=== PATIENT | male | born 1965 | race Two or more races ===

== ENCOUNTER 2018-06-20 02:52 | Emergency (ER) | payer SELFPAY ==
[~2018-06-20] VITALS: Ht 172.7 cm; Wt 77.0 kg
[2018-06-20 02:57] VITALS: BP 121/96
== END 2018-06-20 06:20 | disposition left against medical advice (07) ==
LOC: ER 02:52
DX: F41.9 Anxiety disorder, unspecified (principal); Z53.21 Procedure and treatment not carried out due to patient leaving prior to being seen by health care provider